=== PATIENT | female | born 1950 | race Caucasian/White ===

== ENCOUNTER → 2017-09-15 | Outpatient (CLI) | payer MEDICARE, OTHER ==
[~2017-09-15] MED LIST: ALPRAZOLAM0.25 MG PO; BUPROPION XL150 MG PO
== END ==
LOC: MC.RAD 10:20
DX: Z12.31 Encounter for screening mammogram for malignant neoplasm of breast (principal)

== ENCOUNTER → 2019-01-03 | Outpatient (CLI) | payer MEDICARE, OTHER | LOC: MC.RAD 11-29 10:00 | DX: Z12.31 Encounter for screening mammogram for malignant neoplasm of breast (principal) ==

== ENCOUNTER → 2020-02-03 | Outpatient (CLI) | payer MEDICARE, OTHER | LOC: MC.RAD 10:37 | DX: Z12.31 Encounter for screening mammogram for malignant neoplasm of breast (principal) ==

== ENCOUNTER → 2021-02-05 | Outpatient (CLI) | payer MEDICARE, OTHER | LOC: MC.RAD | DX: Z12.31 Encounter for screening mammogram for malignant neoplasm of breast (principal) ==

== ENCOUNTER → 2022-02-25 | Outpatient (CLI) | payer MEDICARE, OTHER | LOC: MC.RAD 09:30 | DX: Z12.31 Encounter for screening mammogram for malignant neoplasm of breast (principal) ==